=== PATIENT | female | born 1995 | race Two or more races ===

== ENCOUNTER 2020-08-29 23:15 | Inpatient (IN) | payer OTHER ==
[~2020-08-29] VITALS: Ht 170.2 cm; Wt 62.1 kg
== END 2020-09-01 12:56 | disposition home or self-care (01) | DRG 832 ==
LOC: ER 23:15 → SEC-K 08-30 08:46 → OB/GYN 08-30 19:44
PROVIDERS: ADMIT Student in an Organized Health Care Education/Training Program; ATTEND Student in an Organized Health Care Education/Training Program
PROC: 4A1HXFZ Monitoring of Products of Conception, Cardiac Rhythm, External Approach (ICD-10-PCS; principal; 2020-08-30)
PROC: BT4JZZZ Ultrasonography of Kidneys and Bladder (ICD-10-PCS; 2020-08-30)
PROC: BY4CZZZ Ultrasonography of Second Trimester, Single Fetus (ICD-10-PCS; 2020-08-30)
DX: O21.8 Other vomiting complicating pregnancy (principal); O23.42 Unspecified infection of urinary tract in pregnancy, second trimester; O99.282 Endocrine, nutritional and metabolic diseases complicating pregnancy, second trimester; E86.0 Dehydration; Z3A.15 15 weeks gestation of pregnancy

== ENCOUNTER 2020-12-11 10:20 | Outpatient (CLI) | payer OTHER | END 2020-12-11 18:36 | disposition home or self-care (01) | LOC: OBS/DEL 10:20 | PROVIDERS: ATTEND Specialist | DX: O26.843 Uterine size-date discrepancy, third trimester (principal); O26.853 Spotting complicating pregnancy, third trimester; Z3A.29 29 weeks gestation of pregnancy ==

== ENCOUNTER 2021-02-06 02:36 | Inpatient (IN) | payer OTHER ==
[~2021-02-06] VITALS: Ht 157.5 cm; Wt 68.5 kg
[2021-02-08] MEDS ORDERED: FUSION PLUS CA1 EACH PO (16:41)
== END 2021-02-08 17:21 | disposition home or self-care (01) | DRG 807 ==
LOC: OB/GYN 02:36 → LDR 02:36 → OB/GYN 06:21
PROVIDERS: ADMIT Specialist; ATTEND Specialist
PROC: 10E0XZZ Delivery of Products of Conception, External Approach (ICD-10-PCS; principal; 2021-02-06)
PROC: 0W8NXZZ Division of Female Perineum, External Approach (ICD-10-PCS; 2021-02-06)
PROC: 4A1HXFZ Monitoring of Products of Conception, Cardiac Rhythm, External Approach (ICD-10-PCS; 2021-02-06)
DX: O80 Encounter for full-term uncomplicated delivery (principal); Z37.0 Single live birth; Z3A.38 38 weeks gestation of pregnancy